=== PATIENT | female | born 1980 | race Two or more races ===

== ENCOUNTER 2017-12-29 14:34 | Emergency (ER) | payer MEDICAID ==
[~2017-12-29] VITALS: Ht 165.1 cm; Wt 55.0 kg
[2017-12-29 15:32] LABS: BASOPHILS % (AUTO) 0.4 % (0-1); EOSINOPHILS # (AUTO) 0.1 X10'3 (0-0.9); EOSINOPHILS % (AUTO) 1.2 % (0-6); HEMATOCRIT 39.3 % (35.0-45.0); LYMPHOCYTES # (AUTO) 1.5 X10'3 (1.1-4.8); MEAN CORPUSCULAR HEMOGLOBIN 27.1 PG (27.0-31.0); MEAN CORPUSCULAR HGB CONC 33.1 % (33.0-36.5); MEAN CORPUSCULAR VOLUME 81.7 FL (78-98); MEAN PLATELET VOLUME 7.9 FL (7.4-10.4); MONOCYTES # (AUTO) 0.4 X10'3 (0-0.9); MONOCYTES % (AUTO) 8.1 % (2-12); NEUTROPHILS # (AUTO) 3.2 X10'3 (1.8-7.7); NEUTROPHILS % (AUTO) 61.3 % (42-75); PLATELET COUNT 350 X10'3 (140-440); RED BLOOD COUNT 4.81 X10'6 (4.20-5.60); RED CELL DISTRIBUTION WIDTH 13.8 % (11.5-14.5); WHITE BLOOD COUNT 5.2 X10'3 (4.5-11.0)
[2017-12-29 15:46] LABS: ALANINE AMINOTRANSFERASE 17 U/L (12-78); ALBUMIN 3.8 G/DL (3.4-5.0); ALKALINE PHOSPHATASE 63 IU/L (46-116); ANION GAP 8 (8-16); ASPARTATE AMINO TRANSFERASE 11 U/L (10-37); BILIRUBIN,TOTAL 0.3 MG/DL (0.1-1.0); BLOOD UREA NITROGEN 15 MG/DL (7-18); BUN/CREATININE RATIO 26.3 (6.6-38.0); CALCIUM 8.5 MG/DL (8.5-10.1); CHLORIDE 104 MMOL/L (99-107); CREATININE 0.57 MG/DL (0.40-0.90); GLUCOSE 85 MG/DL (70-104); LIPASE 129 U/L (73-393); POTASSIUM 4.3 MMOL/L (3.5-5.1); SODIUM 140 MMOL/L (135-145); TOTAL PROTEIN 7.5 G/DL (6.4-8.2); eGFR > 90 ML/MIN
[2017-12-29 15:51] LABS: PROTHROMBIN TIME 10.6 SECONDS (9.0-12.0)
[2017-12-29 16:04] VITALS: BP 95/62
[2017-12-29 16:17] LABS: URINE HCG NEGATIVE (NEG)
[2017-12-29 16:30] LABS: CLARITY,URINE CLEAR (Clear); COLOR,URINE YELLOW (Yellow); GLUCOSE, URINE NEGATIVE (Neg); KETONES,URINE NEGATIVE (Neg); LEUKOCYTE ESTERASE ,URINE NEGATIVE (Neg); NITRITES, URINE NEGATIVE (Neg); OCCULT BLOOD,URINE NEGATIVE (Neg); PH,URINE 7.5 (4.8-8.0); PROTEIN,URINE NEGATIVE (Neg); UROBILINOGEN,URINE 0.2 E.U/dL (0.2-1.0)
[2017-12-29 16:31] LABS: UA COLLECTION TYPE CLN CATCH MIDSTREAM
[2017-12-29] MEDS ORDERED: METR500T4 PO (17:29)
== END 2017-12-29 17:44 | disposition home or self-care (01) ==
LOC: ER 14:34
DX: N89.8 Other specified noninflammatory disorders of vagina (principal); F17.200 Nicotine dependence, unspecified, uncomplicated; Z98.890 Other specified postprocedural states
CPT/HCPCS: 36415; 80053; 81003; 81025; 83690; 85025; 85610; 87210; 87491; 99284

== ENCOUNTER 2018-07-11 12:55 | Emergency (ER) | payer MEDICAID ==
[~2018-07-11] VITALS: Ht 165.1 cm; Wt 54.5 kg
[2018-07-11 13:44] LABS: BASOPHILS % (AUTO) 0.6 % (0-1); EOSINOPHILS % (AUTO) 0.2 % (0-6); HEMATOCRIT 38.5 % (35.0-45.0); HEMOGLOBIN 12.6 g/dl (12.0-16.0); LYMPHOCYTES # (AUTO) 1.1 X10'3 (1.1-4.8); LYMPHOCYTES % (AUTO) 23.5 % (21-51); MEAN CORPUSCULAR HEMOGLOBIN 25.5 PG (27.0-31.0); MEAN CORPUSCULAR HGB CONC 32.9 g/dL (33.0-36.5); MEAN CORPUSCULAR VOLUME 77.8 FL (78-98); MEAN PLATELET VOLUME 8.1 FL (7.4-10.4); MONOCYTES # (AUTO) 0.2 X10'3 (0-0.9); MONOCYTES % (AUTO) 3.3 % (2-12); NEUTROPHILS # (AUTO) 3.4 X10'3 (1.8-7.7); NEUTROPHILS % (AUTO) 72.4 % (42-75); PLATELET COUNT 306 X10'3 (140-440); RED BLOOD COUNT 4.95 X10'6 (4.20-5.60); RED CELL DISTRIBUTION WIDTH 14.6 % (11.5-14.5); WHITE BLOOD COUNT 4.7 X10'3 (4.5-11.0)
[2018-07-11 13:47] LABS: CLARITY,URINE SLIGHTLY CLOUDY (Clear); COLOR,URINE YELLOW (Yellow); GLUCOSE, URINE NEGATIVE (Neg); KETONES,URINE NEGATIVE (Neg); LEUKOCYTE ESTERASE ,URINE NEGATIVE (Neg); NITRITES, URINE NEGATIVE (Neg); OCCULT BLOOD,URINE NEGATIVE (Neg); PH,URINE 5.5 (4.8-8.0); PROTEIN,URINE NEGATIVE (Neg); UROBILINOGEN,URINE 0.2 E.U/dL (0.2-1.0)
[2018-07-11 13:48] LABS: URINE HCG NEGATIVE (NEG)
[2018-07-11] MEDS ORDERED: glycopyrrolate 0.2mg/ml inj IV ONE (13:50)
[2018-07-11] MEDS ORDERED: normal saline 1000ML IV soln IVB ONE (13:50)
[2018-07-11] MEDS ORDERED: diphenhydrAMINE 50 mg/ml inj IV ONE (13:50)
[2018-07-11] MEDS ORDERED: metoclopramide 5 mg/ml inj IV ONE (13:50)
[2018-07-11 13:52] LABS: UA COLLECTION TYPE CLN CATCH MIDSTREAM
[2018-07-11 13:53] LABS: BACTERIA,URINE 1+ /HPF (Neg); MUCUS STRANDS MANY /LPF (Neg); SQUAMOUS EPITHELIAL CELL,UR MANY /LPF (FEW); WBC,URINE 0-4 /HPF (0-4)
[2018-07-11 13:59] LABS: ALANINE AMINOTRANSFERASE 19 U/L (12-78); ALBUMIN 4.5 G/DL (3.4-5.0); ALBUMIN/GLOBULIN RATIO 1.2 (1.1-1.5); ALKALINE PHOSPHATASE 50 IU/L (46-116); ANION GAP 9 (8-16); ASPARTATE AMINO TRANSFERASE 11 U/L (10-37); BILIRUBIN,TOTAL 0.3 MG/DL (0.1-1.0); BLOOD UREA NITROGEN 12 MG/DL (7-18); BUN/CREATININE RATIO 21.1 (6.6-38.0); CALCIUM 10.8 MG/DL (8.5-10.1); CHLORIDE 108 MMOL/L (99-107); CREATININE 0.57 MG/DL (0.40-0.90); GLUCOSE 91 MG/DL (70-104); SODIUM 142 MMOL/L (135-145); TOTAL CARBON DIOXIDE 25.1 MMOL/L (24-32); TOTAL PROTEIN 8.3 G/DL (6.4-8.2); eGFR > 90 ML/MIN
[2018-07-11 14:00] LABS: INR 1.1 INR
[2018-07-11] MEDS ORDERED: loperamide 2mg capsule PO ONE (14:10)
[2018-07-11] MEDS ORDERED: LOPE-144 PO (14:12)
[2018-07-11] MEDS ORDERED: ONDA4TAB12 PO (14:12)
[2018-07-11 15:36] VITALS: BP 93/64
== END 2018-07-11 15:38 | disposition home or self-care (01) ==
LOC: ER 12:56
DX: R11.2 Nausea with vomiting, unspecified (principal); R19.7 Diarrhea, unspecified; R10.13 Epigastric pain; F17.210 Nicotine dependence, cigarettes, uncomplicated; Z98.890 Other specified postprocedural states
CPT/HCPCS: 36415; 80053; 81001; 81025; 85025; 85610; 96361; 96374; 96375; 99283; J1200; J2765; J7030; J3490

== ENCOUNTER 2018-10-03 00:06 | Emergency (ER) | payer MEDICAID ==
[~2018-10-03] VITALS: Ht 165.1 cm; Wt 59.1 kg
[~2018-10-03 00:06] MED LIST: LOPE-144 PO; ONDA4TAB12 PO
[2018-10-03] MEDS ORDERED: HYDROcodone/acetaminophen 10/325mg tab PO ONE (01:00)
[2018-10-03] MEDS ORDERED: ibuprofen 200mg tablet PO ONE (01:00)
[2018-10-03] MEDS ORDERED: vancomycin/NS 1 GM ADD-VANTAGE 250 ML IV ONE (01:00)
[2018-10-03 01:20] LABS: BASOPHILS % (AUTO) 0.6 % (0-1); EOSINOPHILS # (AUTO) 0.1 X10'3 (0-0.9); EOSINOPHILS % (AUTO) 1.5 % (0-6); HEMOGLOBIN 9.4 g/dl (12.0-16.0); LYMPHOCYTES # (AUTO) 1.3 X10'3 (1.1-4.8); LYMPHOCYTES % (AUTO) 28.1 % (21-51); MEAN CORPUSCULAR HEMOGLOBIN 23.1 PG (27.0-31.0); MEAN CORPUSCULAR HGB CONC 32.4 g/dL (33.0-36.5); MEAN CORPUSCULAR VOLUME 71.3 FL (78-98); MEAN PLATELET VOLUME 7.5 FL (7.4-10.4); MONOCYTES # (AUTO) 0.4 X10'3 (0-0.9); MONOCYTES % (AUTO) 9.1 % (2-12); NEUTROPHILS # (AUTO) 2.9 X10'3 (1.8-7.7); NEUTROPHILS % (AUTO) 60.7 % (42-75); PLATELET COUNT 312 X10'3 (140-440); RED BLOOD COUNT 4.07 X10'6 (4.20-5.60); RED CELL DISTRIBUTION WIDTH 15.6 % (11.5-14.5); WHITE BLOOD COUNT 4.7 X10'3 (4.5-11.0)
[2018-10-03 01:32] LABS: ALANINE AMINOTRANSFERASE 21 U/L (12-78); ALBUMIN 3.7 G/DL (3.4-5.0); ALBUMIN/GLOBULIN RATIO 0.9 (1.1-1.5); ALKALINE PHOSPHATASE 55 IU/L (46-116); ANION GAP 9 (8-16); ASPARTATE AMINO TRANSFERASE 14 U/L (10-37); BILIRUBIN,TOTAL 0.2 MG/DL (0.1-1.0); BLOOD UREA NITROGEN 17 MG/DL (7-18); BUN/CREATININE RATIO 20.2 (6.6-38.0); CHLORIDE 103 MMOL/L (99-107); CREATININE 0.84 MG/DL (0.40-0.90); GLUCOSE 87 MG/DL (70-104); POTASSIUM 3.3 MMOL/L (3.5-5.1); SODIUM 139 MMOL/L (135-145); TOTAL PROTEIN 7.7 G/DL (6.4-8.2); eGFR 76 ML/MIN
--- NOTE | 2018-10-03 01:37 | NUR ---
Patient resting comfortably on gurney, antibiotics started.
[2018-10-03] MEDS ORDERED: ACET-3068 PO (01:48)
[2018-10-03] MEDS ORDERED: CEPH500C5 PO (01:48)
[2018-10-03] MEDS ORDERED: SULF1TAB49 PO (01:48)
[2018-10-03 03:24] VITALS: BP 111/69
--- NOTE | 2018-10-03 03:31 | NUR ---
Upon dischage patient was concerned that she had a blood clot rather than an infection. Dr. Quesada was advised and she went and counseled the patient. They patient voiced that she felt comfortable with the MD diagnosis now.
== END 2018-10-03 03:33 | disposition home or self-care (01) ==
LOC: ER 00:07
DX: L03.116 Cellulitis of left lower limb (principal); F17.200 Nicotine dependence, unspecified, uncomplicated; Z98.890 Other specified postprocedural states; Z79.2 Long term (current) use of antibiotics; Z79.899 Other long term (current) drug therapy
CPT/HCPCS: 36415; 80053; 85025; 96365; 96366; 99283; J3370

== ENCOUNTER 2019-06-21 21:48 | Emergency (ER) | payer MEDICAID ==
[~2019-06-21] VITALS: Ht 165.1 cm; Wt 59.1 kg
[~2019-06-21 21:48] MED LIST changes: +CEPH500C5 PO
[2019-06-21 21:53] VITALS: BP 144/73
[2019-06-21] MEDS ORDERED: HYDR-4383 PO (22:32)
[2019-06-21] MEDS ORDERED: CEPH250T PO (22:32)
[2019-06-21] MEDS ORDERED: HYDROcodone/acetaminophen 5mg/325mg tablet PO ONE (22:40)
== END 2019-06-21 22:59 | disposition home or self-care (01) ==
LOC: ER 21:49
DX: M79.671 Pain in right foot (principal); M25.571 Pain in right ankle and joints of right foot; Z98.890 Other specified postprocedural states; Z72.89 Other problems related to lifestyle; Z79.2 Long term (current) use of antibiotics; Z79.899 Other long term (current) drug therapy
CPT/HCPCS: 99283

== ENCOUNTER 2019-07-05 17:54 | Emergency (ER) | payer MEDICAID ==
[~2019-07-05] VITALS: Ht 165.1 cm; Wt 58.0 kg
[~2019-07-05 17:54] MED LIST changes: +HYDR-4383 PO
[2019-07-05 17:58] VITALS: BP 120/70
[2019-07-05] MEDS ORDERED: ketorolac tromethamine 15mg/ml inj. IM ONE (18:25)
[2019-07-05] MEDS ORDERED: orphenadrine citrate 60mg/2ml inj. IM ONE (18:25)
--- NOTE | 2019-07-05 18:49 | NUR ---
Medicated as ordered for pain. Sling application to the left upper extremity is pending momentarily.
[2019-07-05] MEDS ORDERED: CYCL-1 PO (18:56)
[2019-07-05] MEDS ORDERED: IBUP-1984 PO (18:56)
[2019-07-05] MEDS ORDERED: ORPH100T2 PO (19:02)
== END 2019-07-05 19:13 | disposition home or self-care (01) ==
LOC: ER 17:55
DX: M25.512 Pain in left shoulder (principal); Z98.890 Other specified postprocedural states; Z79.2 Long term (current) use of antibiotics; Z79.899 Other long term (current) drug therapy
CPT/HCPCS: 73030; 96372; 99284; J1885; J2360

== ENCOUNTER 2019-10-08 21:28 | Emergency (ER) | payer MEDICAID ==
[~2019-10-08] VITALS: Ht 165.1 cm; Wt 58.6 kg
[~2019-10-08 21:28] MED LIST changes: -CEPH500C5 PO; +ORPH100T2 PO
[2019-10-08 21:33] VITALS: BP 120/64
[2019-10-08] MEDS ORDERED: CEPH500C5 PO (22:18)
[2019-10-08] MEDS ORDERED: oxyCODONE/APAP 5-325mg tablet PO ONE (22:20)
== END 2019-10-08 22:33 | disposition home or self-care (01) ==
LOC: ER 21:29
DX: L03.115 Cellulitis of right lower limb (principal); Z98.890 Other specified postprocedural states; Z72.89 Other problems related to lifestyle; Z79.2 Long term (current) use of antibiotics; Z79.899 Other long term (current) drug therapy
CPT/HCPCS: 99284

== ENCOUNTER 2019-10-10 18:47 | Emergency (ER) | payer MEDICAID ==
[~2019-10-10] VITALS: Ht 165.1 cm; Wt 58.6 kg
[~2019-10-10 18:47] MED LIST changes: +CEPH500C5 PO
[2019-10-10 18:56] VITALS: BP 127/65
[2019-10-10] MEDS ORDERED: HYDROcodone/acetaminophen 10/325mg tab PO ONE (20:25)
[2019-10-10] MEDS ORDERED: SULF1TAB49 PO (20:44)
== END 2019-10-10 20:54 | disposition home or self-care (01) ==
LOC: ER 18:47
DX: L03.116 Cellulitis of left lower limb (principal); M76.62 Achilles tendinitis, left leg; Z98.890 Other specified postprocedural states; Z72.89 Other problems related to lifestyle; Z79.2 Long term (current) use of antibiotics; Z79.899 Other long term (current) drug therapy
CPT/HCPCS: 99283

== ENCOUNTER 2020-01-29 23:17 | Emergency (ER) | payer MEDICAID ==
[~2020-01-29] VITALS: Ht 165.1 cm; Wt 63.5 kg
[~2020-01-29 23:17] MED LIST changes: -CEPH500C5 PO
[2020-01-30 00:02] VITALS: BP 113/69
[2020-01-30] MEDS ORDERED: ACET-3068 PO (00:32)
[2020-01-30] MEDS ORDERED: morphine 4 MG/ML inj SYRINge IM ONE (00:35)
[2020-01-30] MEDS ORDERED: HYDR-3965 PO (01:32)
== END 2020-01-30 01:48 | disposition home or self-care (01) ==
LOC: ER 23:18
DX: T81.9XXD Unspecified complication of procedure, subsequent encounter (principal); M25.512 Pain in left shoulder; Z88.5 Allergy status to narcotic agent; Z79.899 Other long term (current) drug therapy; F17.200 Nicotine dependence, unspecified, uncomplicated
CPT/HCPCS: 96372; 99283; J2270

== ENCOUNTER 2020-10-10 18:46 | Emergency (ER) | payer MEDICAID ==
[~2020-10-10] VITALS: Ht 165.1 cm; Wt 56.8 kg
[2020-10-10 19:10] VITALS: BP 116/74
== END 2020-10-11 00:43 | disposition left against medical advice (07) ==
LOC: ER 18:47
DX: R07.89 Other chest pain (principal); Z53.21 Procedure and treatment not carried out due to patient leaving prior to being seen by health care provider
CPT/HCPCS: 71045; 93005

== ENCOUNTER 2020-12-27 22:11 | Emergency (ER) | payer SELFPAY ==
[~2020-12-27] VITALS: Ht 165.1 cm; Wt 56.8 kg
[2020-12-27 22:25] VITALS: BP 132/84
[2020-12-27] MEDS ORDERED: ORPH100T2 PO (22:56)
[2020-12-27] MEDS ORDERED: cyclobenzaprine 10mg tablet PO ONE (23:00)
== END 2020-12-27 23:27 | disposition home or self-care (01) ==
LOC: ER 22:12
DX: S16.1XXA Strain of muscle, fascia and tendon at neck level, initial encounter (principal); S29.019A Strain of muscle and tendon of unspecified wall of thorax, initial encounter; S39.012A Strain of muscle, fascia and tendon of lower back, initial encounter; V87.7XXA Person injured in collision between other specified motor vehicles (traffic), initial encounter; Y93.89 Activity, other specified; Y92.89 Other specified places as the place of occurrence of the external cause; Y99.8 Other external cause status; Z88.5 Allergy status to narcotic agent; Z79.899 Other long term (current) drug therapy
CPT/HCPCS: 99283

== ENCOUNTER 2020-12-31 17:11 | Emergency (ER) | payer MEDICAID | END 2020-12-31 19:05 | disposition left against medical advice (07) | LOC: ER 17:11 | DX: R07.9 Chest pain, unspecified (principal); Z53.21 Procedure and treatment not carried out due to patient leaving prior to being seen by health care provider | CPT/HCPCS: 93005 ==